=== PATIENT | female | born 1980 | race African-American/Black ===

== ENCOUNTER 2018-12-22 10:04 | Emergency (ER) | payer SELFPAY ==
[~2018-12-22] VITALS: Ht 167.6 cm; Wt 67.0 kg
[2018-12-22 12:49] VITALS: BP 123/78
== END 2018-12-22 12:49 | disposition home or self-care (01) ==
LOC: ER 10:04
DX: M54.10 Radiculopathy, site unspecified (principal); M54.2 Cervicalgia
CPT/HCPCS: 72040; 81025; 99283